=== PATIENT | male | born 1965 | race Caucasian/White ===

== ENCOUNTER → 2017-05-07 | Outpatient (CLI) | payer BC ==
--- NOTE | 2017-05-07 15:50 | XR ---
EXAMINATION TYPE: XR chest 2V DATE OF EXAM: 05/07/2017 COMPARISON: None HISTORY: 51 year-old male shortness of breath TECHNIQUE: Frontal and lateral views FINDINGS: The cardiomediastinal silhouette, aorta, and pulmonary vasculature are within normal limits. Diffuse peribronchial cuffing and mild interstitial prominence. No consolidation or pleural effusion. IMPRESSION: Diffuse peribronchial cuffing and interstitial prominence. Correlate for bronchitis, uncontrolled ast hma, or atypical pneumonias.
== END | disposition home or self-care (01) ==
LOC: RADXRMAIN 15:24
PROVIDERS: ATTEND Family Medicine
DX: R91.8 Other nonspecific abnormal finding of lung field (principal); R06.02 Shortness of breath
CPT/HCPCS: 71020

== ENCOUNTER → 2017-09-19 | Outpatient (CLI) | payer BC, OTHER ==
--- NOTE | 2017-09-19 17:02 | CT ---
EXAMINATION TYPE: CT chest wo con DATE OF EXAM: 09/19/2017 COMPARISON: NONE HISTORY: Patient complains of shortness of breath x18 months. CT DLP: 302.3 mGycm. Automated Exposure Control for Dose Reduction was Utilized. TECHNIQUE: CT scan of the thorax is performed without IV contrast. FINDINGS: LUNGS: The lungs are grossly clear, there is no concerning parenchymal mass or nodule identified. T here is no pleural effusion or pneumothorax seen. The tracheobronchial tree is patent. Pleural thick ening noted on the left the upper lobe subsegmental perihilar ill-defined attenuation in the left inf rahilar region lingular segment left upper lobe. 2 mm subpleural nodule right upper lobe MEDIASTINUM: Lack of IV contrast is noted to limit evaluation for mediastinal and especially hilar ad enopathy. There are no definitive greater than 1 cm hilar or mediastinal lymph nodes. No cardiomega ly or pericardial effusion is seen. Mild atherosclerotic change of the aorta. Note is made assessment for adenopathy limited by the lack of contrast. OTHER: Hypertrophic and degenerative change spine. IMPRESSION: 1. Subsegmental ill-defined attenuation left infrahilar region linear segment left upper lobe likely related atelectasis rather than early pneumonitis. 2. There is a 2 mm subpleural nodule right upper lobe could be followed on a one-year basis to confir m stability.
== END | disposition home or self-care (01) ==
LOC: RADCTMAIN 16:11
PROVIDERS: ATTEND Internal Medicine
DX: R91.1 Solitary pulmonary nodule (principal); R91.8 Other nonspecific abnormal finding of lung field; R05 Cough; R06.02 Shortness of breath
CPT/HCPCS: 71250

== ENCOUNTER 2017-11-07 08:20 | Day surgery (SDC) | payer BC, OTHER ==
[~2017-11-07 08:20] MED LIST: LACTATED RINGERS 1,000 ML IV SCH
[2017-11-07] MEDS ORDERED: LIDOCAINE 1% 20 ML VIAL (10MG/ML) FOR IV START INTRADERMA ONE (08:48)
[2017-11-07] MEDS ORDERED: PROPOFOL 10 MG/ML 20 ML VIAL IV ONE (10:09)
[2017-11-07] MEDS ORDERED: LIDOCAINE 1% INJ 10MG/ML (20 ML MDV) ONE (10:09)
--- NOTE | 2017-11-07 10:17 | P.GSHP ---
History of Present Illness H&P Date: 11/07/17 CHIEF COMPLAINT: Colon screen HISTORY OF PRESENT ILLNESS: The patient is a 52-year-old male who presents for colon screen. Lower endoscopy was offered for further evaluation and management. PAST MEDICAL HISTORY: Please see list. PAST SURGICAL HISTORY: Please see list. MEDICATIONS: Please see list. ALLERGIES: Please see list. SOCIAL HISTORY: No illicit drug use FAMILY HISTORY: No reports of Crohn disease or ulcerative colitis. REVIEW OF ORGAN SYSTEMS: CONSTITUTIONAL: No reports of fevers or chills. PHYSICAL EXAM: VITAL SIGNS: Stable GENERAL: Well-developed pleasant in no acute distress. HEENT: No scleral icterus. Extraocular movements grossly intact. Moist buccal mucosa. NECK: Supple without lymphadenopathy. CHEST: Unlabored respirations. Equal bilateral excursions. CARDIOVASCULAR: Regular rate and rhythm. Distal 2+ pulses. ABDOMEN: Soft, nontender, nondistended. MUSCULOSKELETAL: No clubbing, cyanosis, or edema. ASSESSMENT: 1. Colon screen. PLAN: 1. Recommend proceeding with a lower endoscopy Past Medical History Past Medical History: Hypertension, Prostate Disorder Additional Past Medical History / Comment(s): migraines, hx heart murmer, hx gout, hx bacterial meningitis 1995 History of Any Multi-Drug Resistant Organisms: None Reported Past Surgical History: No Surgical Hx Reported Past Anesthesia/Blood Transfusion Reactions: No Reported Reaction Smoking Status: Current every day smoker - Past Family History Father Family Medical History: Deep Vein Thrombosis (DVT) Medications and Allergies Home Medications Medication Instructions Recorded Confirmed Type Aspirin [Children's Aspirin] 81 mg PO DAILY 11/06/17 11/06/17 History Finasteride [Proscar] 5 mg PO HS 11/06/17 11/06/17 History Irbesartan 300 mg PO QAM 11/06/17 11/06/17 History Tamsulosin [Flomax] 0.4 mg PO HS 11/06/17 11/06/17 History amLODIPine [Norvasc] 5 mg PO HS 11/06/17 11/06/17 History buPROPion HCL [Wellbutrin XL] 150 mg PO BID 11/06/17 11/06/17 History rOPINIRole HCL 0.5 mg PO HS 11/06/17 11/06/17 History Allergies Allergy/AdvReac Type Severity Reaction Status Date / Time erythromycin base Allergy Rash/Hives Verified 01/03/18 08:39 Surgical - Exam Vital Signs Temp Pulse Resp BP Pulse Ox 97.5 F L 86 16 148/87 98 11/07/17 08:38 11/07/17 08:38 11/07/17 08:38 11/07/17 08:38 11/07/17 08:38
--- NOTE | 2017-11-07 11:14 | P.PCN ---
Date of Procedure: 11/07/17 Description of Procedure: PREOPERATIVE DIAGNOSIS: Colonoscopy screening, initial. Rectal bleeding. POSTOPERATIVE DIAGNOSIS: Colonoscopy screening, initial. Rectal bleeding. Large colonic tumor sigmoid colon. Multiple diverticulosis. OPERATION: Colonoscopy to the ileocecal valve and appendiceal orifice. Colonoscopy with snare polypectomy colonic tumor at sigmoid colon. SURGEON: Jeane Cage MD. ANESTHESIA: MAC. INDICATIONS: The patient is a 52-year-old male who presents for his first colonoscopy screening. Benefits and risks were described and informed consent was obtained. DESCRIPTION OF PROCEDURE: The patient had undergone Gatorade, MiraLAX and Dulcolax prep. He had been brought into the operating room and laid in the left lateral decubitus position. After adequate intravenous sedation, the rectum was examined with 2% lidocaine jelly. The prostate was smooth and without nodularity. No external hemorrhoids were encountered. The rectal tone was within normal limits. No lesions were palpated in the rectal vault. An Olympus colonoscope was advanced until the ileocecal valve and appendiceal orifice were clearly viewed. The prep was fair with visualization of the mucosal folds. The scope was removed with visualization of each mucosal fold. Moderate scattered diverticulosis was encountered. Large 4 x 3 cm pedunculated adenoma with snare polypectomy to completion snare polypectomy at 30 cm from the anal verge. No evidence of focal colitis was found. Retroflexion of the scope demonstrated grade 2 internal hemorrhoids without active bleeding or inflammation. The colon was desufflated. The patient had tolerated the procedure well. Withdrawal time was over 6 minutes. FINDINGS: Internal hemorrhoids, grade 2 External hemorrhoids, grade 1. No arteriovenous malformations. Large 4 x 3 cm pedunculated adenoma with snare polypectomy to completion snare polypectomy at 30 cm from the anal verge. Moderate scattered diverticulosis. No focal colitis. RECOMMENDATIONS: Given severity of tubular adenomas, recommend repeat colonoscopy 1 year. Plan - Discharge Summary New Discharge Prescriptions: No Action buPROPion HCL [Wellbutrin XL] 150 mg PO BID Irbesartan 300 mg PO QAM rOPINIRole HCL 0.5 mg PO HS amLODIPine [Norvasc] 5 mg PO HS Finasteride [Proscar] 5 mg PO HS Tamsulosin [Flomax] 0.4 mg PO HS Aspirin [Children's Aspirin] 81 mg PO DAILY Discharge Medication List Aspirin [Children's Aspirin] 81 mg PO DAILY 11/06/17 [History] Finasteride [Proscar] 5 mg PO HS 11/06/17 [History] Irbesartan 300 mg PO QAM 11/06/17 [History] Tamsulosin [Flomax] 0.4 mg PO HS 11/06/17 [History] amLODIPine [Norvasc] 5 mg PO HS 11/06/17 [History] buPROPion HCL [Wellbutrin XL] 150 mg PO BID 11/06/17 [History] rOPINIRole HCL 0.5 mg PO HS 11/06/17 [History]
[2017-11-07 22:59] VITALS: BP 126/84; PULSE 87; RESP 16; TEMP 97.5; BMI 33.0
--- NOTE | 2017-11-14 14:31 | CDI ---
Outpatient Documentation Clarification Form Date: 11/14/11 CDS/Chip Person Name: KATIE Medeiros Phone: If you have question, contact Susie Alcala Telegraph Service Clerk at [phone] M-F 8:30 am to 6pm. Patient Name: Munir Ruano Admit Date: 11/07/17 Discharge Date: 11/07/17 ATTENTION: The Clinical Documentation Specialists (CDI) and [facility] Coding Staff appreciate your assistance in clarifying documentation. Please respond to the clarification below the line at the bottom and electronically sign. The CDI & [facility] Coding staff will review the response and follow-up if needed. Please note: Queries are made part of the Legal Health Record. If you have any questions, please contact the author of this message via ITS or call the Telegraph Service Clerk. Dr. Cage, I have two questions, as follows: 1. Were external hemorrhoids found? The procedure description states that no external hemorrhoids were found. The procedure findings state external hemorrhoids. 2. Was the patients rectal bleeding secondary to hemorrhoids, or incidental? PLEASE SEE CORRECTED REPORT....RECTAL BLEEDING IS HIS INITIAL COMPLAINT INCLUDING HIS FIRST COLON SCREEN, HEMORRHOIDS WERE FOUND. CAUSE OF BLEEDING WAS A FRIABLE LARGE COLON TUMOR, PLEASE SEE PATHOLOGY REPORT MTDD
== END 2017-11-07 11:39 | disposition home or self-care (01) ==
LOC: ORWHC2ENDO 08:20
PROVIDERS: ATTEND Surgery Plastic and Reconstructive Surgery
DX: D12.5 Benign neoplasm of sigmoid colon (principal); K57.30 Diverticulosis of large intestine without perforation or abscess without bleeding; K64.1 Second degree hemorrhoids; K64.4 Residual hemorrhoidal skin tags; I10 Essential (primary) hypertension; N42.9 Disorder of prostate, unspecified; G43.909 Migraine, unspecified, not intractable, without status migrainosus; R01.1 Cardiac murmur, unspecified; M10.9 Gout, unspecified; F17.200 Nicotine dependence, unspecified, uncomplicated; Z79.82 Long term (current) use of aspirin; Z79.899 Other long term (current) drug therapy; Z88.1 Allergy status to other antibiotic agents
CPT/HCPCS: 88305; 45385; J2001; J2704

== ENCOUNTER 2021-02-24 20:48 | Emergency (ER) | payer BC, OTHER ==
[2021-02-24 20:54] VITALS: TEMP 97.7
[2021-02-24] MEDS ORDERED: SODIUM CHLORIDE 0.9% 1,000 ML IV STA (21:30)
[2021-02-24 21:52] LABS: Basophils # (A) 0.1 k/uL (0-0.2); Basophils % (A) 1 %; Eosinophils # (A) 0.3 k/uL (0-0.7); Eosinophils % (A) 4 %; HCT 49.6 % (39.0-53.0); HGB 16.5 gm/dL (13.0-17.5); Lymphocytes # (A) 3.1 k/uL (1.0-4.8); Lymphocytes % (A) 32 %; MCH 29.3 pg (25.0-35.0); MCHC 33.3 g/dL (31.0-37.0); MCV 87.8 fL (80.0-100.0); Mean Platelet Volume 7.3; Monocytes # (A) 0.7 k/uL (0-1.0); Monocytes % (A) 7 %; Neutrophils # (A) 5.4 k/uL (1.3-7.7); Neutrophils % (A) 55 %; Platelet Count 282 k/uL (150-450); RBC 5.66 m/uL (4.30-5.90); RDW 13.7 % (11.5-15.5); WBC 9.7 k/uL (3.8-10.6)
[2021-02-24 22:04] LABS: Partial Thromboplastin Time 23.8 sec (22.0-30.0); Prothrombin Time 10.5 sec (9.0-12.0)
[2021-02-24 22:05] LABS: ALT 77 U/L (4-49); AST 51 U/L (17-59); African American GFR (CKD) >90 (>60 ml/min/1.73 sqM); Albumin 4.6 g/dL (3.5-5.0); Alkaline Phosphatase 82 U/L (38-126); Anion Gap 9 mmol/L; Blood Urea Nitrogen 16 mg/dL (9-20); C Reactive Protein 1.4 mg/dL (<1.0); Calcium 9.9 mg/dL (8.4-10.2); Carbon Dioxide 30 mmol/L (22-30); Chloride 97 mmol/L (98-107); Creatine Kinase 247 U/L (55-170); Glucose 101 mg/dL (74-99); LDH 628 U/L (313-618); Lipase 45 U/L (23-300); Magnesium 2.2 mg/dL (1.6-2.3); Non-African American GFR(CKD) 81 (>60 ml/min/1.73 sqM); Potassium 4.1 mmol/L (3.5-5.1); Sodium 136 mmol/L (137-145); Total Protein 7.4 g/dL (6.3-8.2)
--- NOTE | 2021-02-24 22:19 | ED ---
Chest Pain HPI - General Chief Complaint: Chest Pain Stated Complaint: Chest & Shoulder Pain , SOB Time Seen by Provider: 02/24/21 21:18 Source: patient, RN notes reviewed, old records reviewed Mode of arrival: ambulatory Limitations: no limitations - History of Present Illness MD Complaint: chest pain -: days(s) Onset: during rest, during exertion Pain Location: substernal, left chest Pain Radiation: none, jaw/teeth Severity scale (1-10): 4 Quality: tightness Consistency: constant Improves With: nothing Context: other (none) Other Symptoms: cough, palpitations Treatments Prior to Arrival: none - Related Data Home Medications Medication Instructions Recorded Confirmed Aspirin [Children's Aspirin] 81 mg PO DAILY 11/06/17 11/06/17 Finasteride [Proscar] 5 mg PO HS 11/06/17 11/06/17 Irbesartan 300 mg PO QAM 11/06/17 11/06/17 Tamsulosin [Flomax] 0.4 mg PO HS 11/06/17 11/06/17 amLODIPine [Norvasc] 5 mg PO HS 11/06/17 11/06/17 buPROPion HCL [Wellbutrin XL] 150 mg PO BID 11/06/17 11/06/17 rOPINIRole HCL [Requip] 0.5 mg PO HS 11/06/17 11/06/17 Allergies Allergy/AdvReac Type Severity Reaction Status Date / Time erythromycin base Allergy Rash/Hives Verified 02/24/21 20:55 Review of Systems ROS Statement: Those systems with pertinent positive or pertinent negative responses have been documented in the HPI. ROS Other: All systems not noted in ROS Statement are negative. EKG Findings - EKG Comments: EKG Findings:: EKG shows sinus rhythm 98 VT 132 QRS 92 QTC 472 Past Medical History Past Medical History: Hypertension, Prostate Disorder Additional Past Medical History / Comment(s): migraines, hx heart murmer, hx gout, hx bacterial meningitis 1995 History of Any Multi-Drug Resistant Organisms: None Reported Past Surgical History: No Surgical Hx Reported Past Anesthesia/Blood Transfusion Reactions: No Reported Reaction Past Psychological History: No Psychological Hx Reported Smoking Status: Current every day smoker Past Alcohol Use History: None Reported Past Drug Use History: None Reported - Past Family History Father Family Medical History: Deep Vein Thrombosis (DVT) General Exam Limitations: no limitations General appearance: alert, in no apparent distress Head exam: Present: atraumatic, normocephalic, normal inspection Eye exam: Present: normal appearance, PERRL, EOMI. Absent: scleral icterus, conjunctival injection, periorbital swelling ENT exam: Present: normal exam, mucous membranes moist Neck exam: Present: normal inspection. Absent: tenderness, meningismus, lymphadenopathy Respiratory exam: Present: normal lung sounds bilaterally. Absent: respiratory distress, wheezes, rales, rhonchi, stridor Cardiovascular Exam: Present: regular rate, normal rhythm, normal heart sounds. Absent: systolic murmur, diastolic murmur, rubs, gallop, clicks GI/Abdominal exam: Present: soft, normal bowel sounds. Absent: distended, tenderness, guarding, rebound, rigid Extremities exam: Present: normal inspection, full ROM, normal capillary refill. Absent: tenderness, pedal edema, joint swelling, calf tenderness Back exam: Present: normal inspection Neurological exam: Present: alert, oriented X3, CN II-XII intact Psychiatric exam: Present: normal affect, normal mood Skin exam: Present: warm, dry, intact, normal color. Absent: rash Course Vital Signs 02/24/21 02/24/21 20:51 23:10 Temperature 97.7 F Pulse Rate 99 104 H Respiratory 18 16 Rate Blood Pressure 131/67 149/80 O2 Sat by Pulse 99 98 Oximetry - Reevaluation(s) Reevaluation #1: Medical record is reviewed Patient symptoms are significantly improved here in the emergency department Patient family informed of results, questions answered Disposition Clinical Impression: Chest pain, Atypical chest pain Disposition: HOME SELF-CARE Condition: Good Instructions (If sedation given, give patient instructions): Chest Pain (ED) Is patient prescribed a controlled substance at d/c from ED?: No Referrals: Gary Baum DO [Primary Care Provider] - 1-2 days
--- NOTE | 2021-02-24 22:31 | CT ---
EXAMINATION TYPE: CT angio chest DATE OF EXAM: 02/24/2021 COMPARISON: 09/19/2017 HISTORY: pain CT DLP: 648.4 mGycm Automated exposure control for dose reduction was used. CONTRAST: Performed with IV Contrast, patient injected with 70 mL of Isovue 370. There are 3-D post processed images. The lungs are clear of consolidation. There is no pleural effusion. Heart size is normal. There is no pericardial effusion. There are no hilar masses. There is no mediastinal adenopathy. Thoracic aorta appears intact. Ascending aorta measures 3.4 cm. T here is no aneurysm or dissection. There is suboptimal contrast density in the pulmonary arteries. I see no filling defect. The thoracic spine is intact. There is no compression fracture. Upper abdominal soft tissues are intact. IMPRESSION: No evidence of pulmonary embolism. Suboptimal exam. No evidence of any significant lung disease.
[2021-02-24 23:12] VITALS: BP 149/80; PULSE 104; RESP 16
== END 2021-02-24 23:12 | disposition home or self-care (01) ==
LOC: EC 20:48
DX: R07.89 Other chest pain (principal); R06.02 Shortness of breath; I10 Essential (primary) hypertension; G43.909 Migraine, unspecified, not intractable, without status migrainosus; F17.200 Nicotine dependence, unspecified, uncomplicated; Z79.82 Long term (current) use of aspirin; M25.519 Pain in unspecified shoulder
CPT/HCPCS: 36415; 93005; 83880; 80053; 82550; 83615; 83690; 83735; 84484; 85025; 85610; 85730; 86140; 71275; 99285; 96360; Q9967

== ENCOUNTER 2021-09-29 20:17 | Emergency (ER) | payer BC ==
[2021-09-29 20:29] VITALS: TEMP 98.7
--- NOTE | 2021-09-29 21:12 | ED ---
General Adult HPI - General Chief complaint: Skin/Abscess/Foreign Body Stated complaint: Rash on L armpit,sore chest near rash Time Seen by Provider: 09/29/21 20:46 Source: patient, RN notes reviewed Mode of arrival: ambulatory Limitations: no limitations - History of Present Illness Initial comments: 56-year-old male presents to the emergency department accompanied by his spouse for evaluation of reddened areas to the left axilla, left breast, and the pubic region. Patient states symptoms began approximately 10 days ago with a few isolated reddened bumps under the left arm, but now has significant increased redness and discomfort. States within the past few days he developed redness around the left breast with an area that is firm and tender. Also has skin breakdown around the shaft of his penis and left pubic region. Patient states he applied neosporin to the left axilla and had some improvement initially, but reports it then worsened. Patient denies fever, chills, headache, nausea, and vomiting. - Related Data Home Medications Medication Instructions Recorded Confirmed Aspirin [Children's Aspirin] 81 mg PO DAILY 11/06/17 11/06/17 Finasteride [Proscar] 5 mg PO HS 11/06/17 11/06/17 Irbesartan 300 mg PO QAM 11/06/17 11/06/17 Tamsulosin [Flomax] 0.4 mg PO HS 11/06/17 11/06/17 amLODIPine [Norvasc] 5 mg PO HS 11/06/17 11/06/17 buPROPion HCL [Wellbutrin XL] 150 mg PO BID 11/06/17 11/06/17 rOPINIRole HCL [Requip] 0.5 mg PO HS 11/06/17 11/06/17 Previous Rx's Medication Instructions Recorded Cephalexin [Keflex] 500 mg PO Q6HR #40 cap 09/29/21 Nystatin 100,000Unit/gm Cream 1 applic TOPICAL BID 10 Days #15 09/29/21 [Mycostatin Cream] gram Sulfamethox-Tmp 800-160Mg [Bactrim 1 each PO Q12HR #20 tab 09/29/21 Ds] Allergies Allergy/AdvReac Type Severity Reaction Status Date / Time erythromycin base Allergy Rash/Hives Verified 02/24/21 20:55 Review of Systems ROS Statement: Those systems with pertinent positive or pertinent negative responses have been documented in the HPI. ROS Other: All systems not noted in ROS Statement are negative. Past Medical History Past Medical History: Hypertension, Prostate Disorder Additional Past Medical History / Comment(s): migraines, hx heart murmer, hx gout, hx bacterial meningitis 1995 History of Any Multi-Drug Resistant Organisms: None Reported Past Surgical History: No Surgical Hx Reported Past Anesthesia/Blood Transfusion Reactions: No Reported Reaction Past Psychological History: No Psychological Hx Reported Smoking Status: Current every day smoker Past Alcohol Use History: None Reported Past Drug Use History: None Reported - Past Family History Father Family Medical History: Deep Vein Thrombosis (DVT) General Exam Limitations: no limitations (Well-developed, well-nourished male in no acute distress. Initial temperature 98.7, pulse 109, respirations 22, blood pressure 194/87, pulse ox 98% on room air.) General appearance: alert, in no apparent distress ENT exam: Present: normal exam, normal oropharynx, mucous membranes moist Neck exam: Present: other (Localized area of swelling on the left side of the neck along the anterior cervical lymph node chain; patient states this has been present for the past 18 months and has been evaluated by his PCP.). Absent: tenderness Respiratory exam: Present: normal lung sounds bilaterally. Absent: respiratory distress, wheezes, rales, rhonchi, stridor Cardiovascular Exam: Present: regular rate, normal rhythm, normal heart sounds. Absent: systolic murmur, diastolic murmur, rubs, gallop, clicks GI/Abdominal exam: Present: soft, normal bowel sounds. Absent: distended, tenderness, guarding, rebound, rigid External exam: Present: other (thickened, erythematous skin in pubic area and shaft of penis) Neurological exam: Present: alert, oriented X3, CN II-XII intact Psychiatric exam: Present: normal affect, normal mood Expanded Type of lesion: Present: rash, abscess (area of firmness localized to the left breast, subareolar; surrounding tissue erythematous; no discharge or drainage. Differs in appearance from axillary and pubic rashes.) Distribution of rash: other (left axilla) Description of rash: Present: tenderness, erythematous (thickened skin, areas of breakdown), confluent, discharge (brownish colored discharge) Course Vital Signs 11/25/21 11/25/21 20:27 22:57 Temperature 98.7 F Pulse Rate 109 H 93 Respiratory 22 16 Rate Blood Pressure 194/87 163/93 O2 Sat by Pulse 98 96 Oximetry Medical Decision Making - Medical Decision Making 56-year-old male with past medical history of hypertension, presents to the emergency department for evaluation. Upon exam, patient has left axillary diffuse, erythematous, thickened skin with brownish discharge that is a yeast- like fungal infection in appearance. Patient also has what appears to be secondary infection around the left breast. Mildly erythematous area noted across the entire left breast with an indurated area noted sub-areolar that is tender to touch; this appears to be a secondary infection. Patient also has a yeast-like fungal on the shaft of his penis. Laboratory studies were reviewed; mild leukocytosis noted. Yeast-looking fungal infections will be treated with topical nystatin. Cellulitis with possible abscess will be treated with oral Keflex and Bactrim. Patient is instructed to follow-up with his primary care provider in the next 24-48 hours for a recheck. Return parameters were discussed in detail. Patient verbalizes understanding and agrees with this plan. This patient's care was discussed with my attending Dr. Flores. - Lab Data Result diagrams: 09/29/21 21:35 09/29/21 21:35 Lab Results 09/29/21 09/29/21 Range/Units 21:35 21:35 WBC 11.6 H (3.8-10.6) k/uL RBC 4.91 (4.30-5.90) m/uL Hgb 14.4 (13.0-17.5) gm/dL Hct 42.9 (39.0-53.0) % MCV 87.4 (80.0-100.0) fL MCH 29.3 (25.0-35.0) pg MCHC 33.6 (31.0-37.0) g/dL RDW 13.0 (11.5-15.5) % Plt Count 257 (150-450) k/uL MPV 7.0 Neutrophils % 69 % Lymphocytes % 22 % Monocytes % 4 % Eosinophils % 3 % Basophils % 0 % Neutrophils # 8.0 H (1.3-7.7) k/uL Lymphocytes # 2.5 (1.0-4.8) k/uL Monocytes # 0.5 (0-1.0) k/uL Eosinophils # 0.4 (0-0.7) k/uL Basophils # 0.1 (0-0.2) k/uL Sodium 138 (137-145) mmol/L Potassium 4.1 (3.5-5.1) mmol/L Chloride 102 (98-107) mmol/L Carbon Dioxide 28 (22-30) mmol/L Anion Gap 8 mmol/L BUN 14 (9-20) mg/dL Creatinine 1.01 (0.66-1.25) mg/dL Est GFR (CKD-EPI)AfAm >90 (>60 ml/min/1.73 sqM) Est GFR (CKD-EPI)NonAf 82 (>60 ml/min/1.73 sqM) Glucose 129 H (74-99) mg/dL Calcium 9.0 (8.4-10.2) mg/dL Disposition Clinical Impression: Jo infection of flexural skin, Cellulitis of breast of male, Abscess of breast, left Disposition: HOME SELF-CARE Condition: Stable Instructions (If sedation given, give patient instructions): Cellulitis (ED), Abscess (ED), Skin Yeast Infection (ED) Additional Instructions: Take oral antibiotics to treat left breast skin infection and abscess. Monitor for signs of worsening infection including fever, chills, and worsening pain and redness. Apply topical antifungal medication to left axilla (armpit) and affected pubic area. Follow-up with primary care provider for recheck in the next 1-2 days. Return to the emergency department with any new, worsening, or concerning symptoms. Prescriptions: Sulfamethox-Tmp 800-160Mg [Bactrim Ds] 1 each PO Q12HR #20 tab Cephalexin [Keflex] 500 mg PO Q6HR #40 cap Nystatin 100,000Unit/gm Cream [Mycostatin Cream] 1 applic TOPICAL BID 10 Days #15 gram Is patient prescribed a controlled substance at d/c from ED?: No Referrals: Gary Baum DO [Primary Care Provider] - 1-2 days Time of Disposition: 22:53
[2021-09-29 21:41] LABS: Basophils # (A) 0.1 k/uL (0-0.2); Basophils % (A) 0 %; Eosinophils # (A) 0.4 k/uL (0-0.7); Eosinophils % (A) 3 %; HCT 42.9 % (39.0-53.0); HGB 14.4 gm/dL (13.0-17.5); Lymphocytes # (A) 2.5 k/uL (1.0-4.8); Lymphocytes % (A) 22 %; MCH 29.3 pg (25.0-35.0); MCHC 33.6 g/dL (31.0-37.0); MCV 87.4 fL (80.0-100.0); Monocytes # (A) 0.5 k/uL (0-1.0); Monocytes % (A) 4 %; Neutrophils % (A) 69 %; Platelet Count 257 k/uL (150-450); RBC 4.91 m/uL (4.30-5.90); WBC 11.6 k/uL (3.8-10.6)
[2021-09-29 21:53] LABS: Chloride 102 mmol/L (98-107)
[2021-09-29 21:58] LABS: African American GFR (CKD) >90 (>60 ml/min/1.73 sqM); Anion Gap 8 mmol/L; Blood Urea Nitrogen 14 mg/dL (9-20); Carbon Dioxide 28 mmol/L (22-30); Glucose 129 mg/dL (74-99); Non-African American GFR(CKD) 82 (>60 ml/min/1.73 sqM); Potassium 4.1 mmol/L (3.5-5.1); Sodium 138 mmol/L (137-145)
[2021-09-29] MEDS ORDERED: CEPHALEXIN 500 MG CAP PO STA (22:35)
[2021-09-29] MEDS ORDERED: SULFAMETHOX-TMP 800-160MG 1 EACH TAB PO STA (22:35)
[2021-09-29 22:58] VITALS: BP 163/93; PULSE 93; RESP 16
[2021-09-29] MEDS ORDERED: NYSTATIN 100,000 UNIT/GM OINT 30 GM TUBE TOPICAL ONE (23:00)
== END 2021-09-29 23:08 | disposition home or self-care (01) ==
LOC: EC 20:17
DX: L03.313 Cellulitis of chest wall (principal); N61.1 Abscess of the breast and nipple; B37.2 Candidiasis of skin and nail; I10 Essential (primary) hypertension; G43.909 Migraine, unspecified, not intractable, without status migrainosus; F17.200 Nicotine dependence, unspecified, uncomplicated; Z88.1 Allergy status to other antibiotic agents; Z79.82 Long term (current) use of aspirin; Z79.899 Other long term (current) drug therapy
CPT/HCPCS: 36415; 80048; 85025; 99283

== ENCOUNTER 2021-10-02 10:27 | Emergency (ER) | payer BC ==
[2021-10-02 10:31] VITALS: BP 152/97; PULSE 98; RESP 18
[2021-10-02] MEDS ORDERED: KETOROLAC 30 MG/ML 1 ML VIAL IM STA (10:47)
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
== END 2021-10-02 11:35 | disposition home or self-care (01) ==
LOC: EC 10:27
DX: M10.071 Idiopathic gout, right ankle and foot (principal); I10 Essential (primary) hypertension; F17.200 Nicotine dependence, unspecified, uncomplicated; Z88.1 Allergy status to other antibiotic agents; Z79.82 Long term (current) use of aspirin; Z79.899 Other long term (current) drug therapy
CPT/HCPCS: 99283; 96372; J1885

== ENCOUNTER 2021-11-13 00:12 | Emergency (ER) | payer OTHER, BC ==
[2021-11-13 01:02] VITALS: BP 134/84; PULSE 105; RESP 20; TEMP 99
[2021-11-13] MEDS ORDERED: KETOROLAC 15 MG/ML 1 ML VIAL IM STA (01:22)
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
== END 2021-11-13 02:53 | disposition home or self-care (01) ==
LOC: EC 00:12
DX: M54.59 Other low back pain (principal); I10 Essential (primary) hypertension; G43.909 Migraine, unspecified, not intractable, without status migrainosus; F17.200 Nicotine dependence, unspecified, uncomplicated; Z79.82 Long term (current) use of aspirin; Z88.1 Allergy status to other antibiotic agents; V49.9XXA Car occupant (driver) (passenger) injured in unspecified traffic accident, initial encounter; Y92.410 Unspecified street and highway as the place of occurrence of the external cause
CPT/HCPCS: 99283; 96372; 72100; J1885

== ENCOUNTER 2022-01-31 12:08 | Emergency (ER) | payer OTHER, BC ==
[2022-01-31 12:23] VITALS: BP 148/79; PULSE 77; RESP 18; TEMP 98.9
[2022-01-31] MEDS ORDERED: CEPHALEXIN 500MG STARTER PACK 4 CAP BTL PO STA (12:37)
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
== END 2022-01-31 12:54 | disposition home or self-care (01) ==
LOC: EC 12:08
DX: N49.2 Inflammatory disorders of scrotum (principal); I10 Essential (primary) hypertension; G43.909 Migraine, unspecified, not intractable, without status migrainosus; F17.200 Nicotine dependence, unspecified, uncomplicated
CPT/HCPCS: 87070; 87205; 99283

== ENCOUNTER 2023-03-20 17:37 | Emergency (ER) | payer OTHER, BC ==
[2023-03-20 17:42] VITALS: RESP 16; TEMP 98
[2023-03-20 18:07] LABS: Basophils % (A) 1 %; Eosinophils # (A) 0.4 k/uL (0-0.7); Eosinophils % (A) 5 %; HCT 46.8 % (39.0-53.0); HGB 16.1 gm/dL (13.0-17.5); Lymphocytes # (A) 2.8 k/uL (1.0-4.8); Lymphocytes % (A) 34 %; MCH 30.1 pg (25.0-35.0); MCHC 34.3 g/dL (31.0-37.0); MCV 87.5 fL (80.0-100.0); Mean Platelet Volume 7.4; Monocytes # (A) 0.4 k/uL (0-1.0); Monocytes % (A) 4 %; Neutrophils # (A) 4.6 k/uL (1.3-7.7); Neutrophils % (A) 56 %; Platelet Count 266 k/uL (150-450); RBC 5.34 m/uL (4.30-5.90); RDW 13.1 % (11.5-15.5); WBC 8.4 k/uL (3.8-10.6)
[2023-03-20 18:16] LABS: INR 0.9 (<1.2); Partial Thromboplastin Time 22.5 sec (22.0-30.0); Prothrombin Time 9.9 sec (9.0-12.0)
[2023-03-20 18:49] LABS: ALT 52 U/L (4-49); AST 35 U/L (17-59); African American GFR (CKD) >90 (>60 ml/min/1.73 sqM); Albumin 4.2 g/dL (3.5-5.0); Alkaline Phosphatase 81 U/L (38-126); Anion Gap 11 mmol/L; Blood Urea Nitrogen 11 mg/dL (9-20); Calcium 8.9 mg/dL (8.4-10.2); Carbon Dioxide 25 mmol/L (22-30); Chloride 102 mmol/L (98-107); Glucose 109 mg/dL (74-99); Non-African American GFR(CKD) 88 (>60 ml/min/1.73 sqM); Potassium 4.4 mmol/L (3.5-5.1); Sodium 138 mmol/L (137-145); Total Bilirubin 0.3 mg/dL (0.2-1.3); Total Protein 7.1 g/dL (6.3-8.2)
--- NOTE | 2023-03-20 19:42 | XR ---
EXAMINATION TYPE: XR chest 2V DATE OF EXAM: 03/20/2023 COMPARISON: CTA chest February 24, 2021 HISTORY: Chest pain. TECHNIQUE: Frontal and lateral views of the chest are obtained. FINDINGS: There is no focal air space opacity, pleural effusion, or pneumothorax seen. The cardiac silhouette size is within normal limits. The osseous structures are intact. IMPRESSION: No acute process. No significant change from prior CT.
--- NOTE | 2023-03-20 19:57 | ED ---
Chest Pain HPI - General Chief Complaint: Chest Pain Stated Complaint: CHEST PAIN Time Seen by Provider: 03/20/23 19:45 Source: patient Mode of arrival: ambulatory Limitations: no limitations - History of Present Illness Initial Comments: This patient is a 57-year-old man who presents evaluation of pain in the chest that is been going on since about 1 in the afternoon. The patient states she was getting ready to go to work. He noticed the pain there. He states it is mainly present when he coughs or if he presses on his chest. It does seem to go into his back. He states he has been dealing with "a cold" for the past week, including cough and congestion. The patient has not noted any anginal symptoms. MD Complaint: chest pain Onset/Timin -: hour(s) Onset: during rest Pain Location: left chest Pain Radiation: back Severity: moderate Quality: aching Consistency: intermittent Improves With: nothing Worsens With: palpation, other (Cough) Other Symptoms: cough Treatments Prior to Arrival: none - Related Data Home Medications Medication Instructions Recorded Confirmed Aspirin [Children's Aspirin] 81 mg PO DAILY 11/06/17 11/06/17 Finasteride [Proscar] 5 mg PO HS 11/06/17 11/06/17 Irbesartan 300 mg PO QAM 11/06/17 11/06/17 Tamsulosin [Flomax] 0.4 mg PO HS 11/06/17 11/06/17 amLODIPine [Norvasc] 5 mg PO HS 11/06/17 11/06/17 buPROPion HCL [Wellbutrin XL] 150 mg PO BID 11/06/17 11/06/17 rOPINIRole HCL [Requip] 0.5 mg PO HS 11/06/17 11/06/17 Previous Rx's Medication Instructions Recorded Cephalexin [Keflex] 500 mg PO Q6HR #40 cap 09/29/21 Nystatin 100,000Unit/gm Cream 1 applic TOPICAL BID 10 Days #15 09/29/21 [Mycostatin Cream] gram Sulfamethox-Tmp 800-160Mg [Bactrim 1 each PO Q12HR #20 tab 09/29/21 Ds] Indomethacin [Indocin] 50 mg PO TID PRN #30 capsule 10/02/21 Cyclobenzaprine HCl 10 mg PO TID 7 Days #21 tab 11/13/21 predniSONE 50 mg PO DAILY #5 tab 11/13/21 Cephalexin [Keflex] 500 mg PO QID #40 cap 01/31/22 Sulfamethox-Tmp 800-160Mg [Bactrim 1 each PO Q12HR 7 Days #14 tab 12/24/22 Ds] predniSONE [Deltasone] 20 mg PO BID #8 tab 03/20/23 Allergies Allergy/AdvReac Type Severity Reaction Status Date / Time erythromycin base Allergy Rash/Hives Verified 03/20/23 17:39 Review of Systems ROS Statement: Those systems with pertinent positive or pertinent negative responses have been documented in the HPI. ROS Other: All systems not noted in ROS Statement are negative. Constitutional: Denies: fever, chills, weakness Respiratory: Reports: cough. Denies: dyspnea, wheezes, hemoptysis Cardiovascular: Reports: chest pain. Denies: palpitations, orthopnea, edema, syncope Gastrointestinal: Denies: abdominal pain, nausea, vomiting Genitourinary: Denies: dysuria, hematuria Musculoskeletal: Denies: back pain Skin: Denies: rash Neurological: Denies: headache, weakness EKG Findings - EKG Results: EKG: interpreted by ERMD, sinus rhythm, normal axis - Blocks, [place], Hypertrophy, ST Abn: QRS axis and voltage: low voltage (<0.5 MV total QRS and <1.0 MV in each precordial lead) Repolarization changes or abnormalities: nonspecific abnormality, ST segment, and/or T wave Past Medical History Past Medical History: Hypertension, Prostate Disorder Additional Past Medical History / Comment(s): migraines, hx heart murmer, hx gout, hx bacterial meningitis 1995 History of Any Multi-Drug Resistant Organisms: MRSA Date of last positivie culture/infection: 01/31/22 MDRO Source:: MRSA GROIN Past Surgical History: No Surgical Hx Reported Past Anesthesia/Blood Transfusion Reactions: No Reported Reaction Past Psychological History: No Psychological Hx Reported Smoking Status: Current every day smoker Past Alcohol Use History: None Reported Past Drug Use History: None Reported - Past Family History Father Family Medical History: Deep Vein Thrombosis (DVT) General Exam Limitations: no limitations General appearance: alert, in no apparent distress Head exam: Present: atraumatic, normocephalic Eye exam: Present: normal appearance Neck exam: Present: normal inspection Respiratory exam: Present: normal lung sounds bilaterally, chest wall tenderness. Absent: respiratory distress, wheezes, rales, rhonchi, stridor, accessory muscle use Cardiovascular Exam: Present: regular rate, normal rhythm, normal heart sounds. Absent: systolic murmur, diastolic murmur, rubs, gallop GI/Abdominal exam: Present: soft. Absent: distended, tenderness, guarding, rebound, rigid, mass Extremities exam: Present: normal inspection, normal capillary refill. Absent: pedal edema, calf tenderness Back exam: Present: normal inspection. Absent: CVA tenderness (R), CVA tenderness (L) Neurological exam: Present: alert Skin exam: Present: warm, dry, intact, normal color. Absent: rash Course Vital Signs 03/20/23 03/20/23 03/20/23 17:39 19:57 21:21 Temperature 98 F Pulse Rate 111 H 87 82 Respiratory 16 16 16 Rate Blood Pressure 162/85 149/95 112/78 O2 Sat by Pulse 99 95 97 Oximetry Chest Pain [facility] - MDM This patient is 57-year-old man who presents with chest pain in relation to cough. History and physical exam consistent with bronchitis and associated chest wall pain. The patient had negative workup here. I discussed having admission to see cardiology as well as having serial cardiac enzymes and telemetry monitoring, the patient is declining. I did discuss that he had risk factor of smoking, but the patient states that he feels well and wants to go home. He will return should the symptoms recur. Otherwise she is going to arrange stress test as outpatient. We discussed appropriate return parameters as well as the further care and follow-up. Patient had chest x-ray which I interpreted as not showing acute infiltrate, congestive heart failure or pneumothorax. Was pt. sent in by a medical professional or institution (, PA, [employer], urgent care, hospital, or long term...) When possible be specific @ -[No] Did you speak to anyone other than the patient for history (EMS, parent, family, police, friend...)? What history was obtained from this source @ -[No] Did you review nursing and triage notes (agree or disagree)? Why? @ -[I reviewed and agree with nursing and triage notes] Were old charts reviewed (outside hosp., previous admission, EMS record, old EKG, old radiological studies, urgent care reports/EKG's, long term records)? Report findings @ -[No old charts were reviewed] Differential Diagnosis (chest pain, altered mental status, abdominal pain women, abdominal pain men, vaginal bleeding, weakness, fever, dyspnea, syncope, headache, dizziness, GI bleed, back pain, seizure, CVA, palpatations, mental health, musculoskeletal)? @ -[Differential Chest Pain: Stable Angina, Unstable Angina, STEMI, NSTEMI Aortic Dissection, Pneumothorax, Musculoskeletal, Esophageal Spasm GERD, Cholecystitis, Pancreatitis, Zoster, this is not meant to be an all-inclusive list. EKG interpreted by me (3pts min.). @ -[As above] X-rays interpreted by me (1pt min.). @ -[As above CT interpreted by me (1pt min.). @ -[None done] U/S interpreted by me (1pt. min.). @ -[None done] What testing was considered but not performed or refused? (CT, X-rays, U/S, labs)? Why? @ -[None] What meds were considered but not given or refused? Why? @ -[None] Did you discuss the management of the patient with other professionals (professionals i.e. , PA, [employer], lab, RT, psych nurse, social human services assistants, aluminum molder, teacher, armoured corps officer, egg caser)? Give summary @ -[No] Was smoking cessation discussed for >3mins.? @ -[Yes, and patient states that he has been able to cut down to approximately one third pack and will continue to work on quitting Was critical care preformed (if so, how long)? @ -[No] Were there social determinants of health that impacted care today? How? (Homelessness, low income, unemployed, alcoholism, drug addiction, transportation, low edu. Level, literacy, decrease access to med. care, halfway, rehab)? @ -[No] Was there de-escalation of care discussed even if they declined (Discuss DNR or withdrawal of care, Hospice)? DNR status @ -[No] What co-morbidities impacted this encounter? (DM, HTN, Smoking, COPD, CAD, Ca ncer, CVA, ARF, Chemo, Hep., AIDS, mental health diagnosis, sleep apnea, morbid obesity)? @ -[Smoking Was patient admitted / discharged? Hospital course, mention meds given and route, prescriptions, significant lab abnormalities, going to OR and other pertinent info. @ -[Discharged with close follow-up Undiagnosed new problem with uncertain prognosis? @ -[No] Drug Therapy requiring intensive monitoring for toxicity (Heparin, Nitro, Insulin, Cardizem)? @ -[No] Were any procedures done? @ -[No] Diagnosis/symptom? @ -[Acute chest wall pain Acute bronchitis Acute, or Chronic, or Acute on Chronic? @ -[default] Uncomplicated (without systemic symptoms) or Complicated (systemic symptoms)? @ -[Uncomplicated Side effects of treatment? @ -[No] Exacerbation, Progression, or Severe Exacerbation? @ -[No] Poses a threat to life or bodily function? How? (Chest pain, USA, MS, pneumonia, PE, COPD, DKA, ARF, appy, cholecystitis, CVA, Diverticulitis, Homicidal, Suicidal, threat to staff... and all critical care pts) @ -[No] Disposition Clinical Impression: Chest wall pain, Bronchitis Disposition: HOME SELF-CARE Condition: Good Instructions (If sedation given, give patient instructions): Acute Bronchitis (ED), Chest Wall Pain (ED) Additional Instructions: As we discussed, follow-up with your doctor. I would suggest scheduling a stress test in the near future, given your cardiac risk factors. Should any of the symptoms develop that we discussed, return to the emergency department immediately Prescriptions: predniSONE [Deltasone] 20 mg PO BID #8 tab Is patient prescribed a controlled substance at d/c from ED?: No Referrals: Gary Baum DO [Primary Care Provider] - 1-2 days
[2023-03-20] MEDS ORDERED: ALBUTEROL NEBULIZED 2.5 MG/3 ML INHALATION STA (20:32)
[2023-03-20] MEDS ORDERED: predniSONE 20 MG TAB PO STA (20:32)
[2023-03-20] MEDS ORDERED: IPRATROPIUM-ALBUTEROL 3 ML NEB INHALATION STA (20:32)
[2023-03-20 21:23] VITALS: BP 112/78; PULSE 82
== END 2023-03-20 22:11 | disposition home or self-care (01) ==
LOC: EC 17:37
DX: R07.89 Other chest pain (principal); J20.9 Acute bronchitis, unspecified; I10 Essential (primary) hypertension; F17.200 Nicotine dependence, unspecified, uncomplicated; Z88.1 Allergy status to other antibiotic agents; Z79.82 Long term (current) use of aspirin; Z79.899 Other long term (current) drug therapy; Z20.822 Contact with and (suspected) exposure to COVID-19
CPT/HCPCS: 36415; 71046; 80053; 84484; 85025; 85610; 85730; 87636; 93005; 99285

== ENCOUNTER 2023-07-05 21:23 | Observation (INO) | payer OTHER, BC ==
[2023-07-05] MEDS ORDERED: SODIUM CHLORIDE 0.9% 1,000 ML IV STA ×3 (21:59→23:25)
[2023-07-05 22:45] LABS: Prothrombin Time 10.4 sec (9.0-12.0)
[2023-07-05 22:52] LABS: ALT 32 U/L (4-49); AST 34 U/L (17-59); African American GFR (CKD) 30 (>60 ml/min/1.73 sqM); Albumin 4.3 g/dL (3.5-5.0); Alkaline Phosphatase 87 U/L (38-126); Anion Gap 15 mmol/L; Blood Urea Nitrogen 23 mg/dL (9-20); Calcium 9.2 mg/dL (8.4-10.2); Carbon Dioxide 23 mmol/L (22-30); Chloride 95 mmol/L (98-107); Glucose 118 mg/dL (74-99); Magnesium 1.8 mg/dL (1.6-2.3); Non-African American GFR(CKD) 26 (>60 ml/min/1.73 sqM); Sodium 133 mmol/L (137-145); Total Protein 7.1 g/dL (6.3-8.2)
[2023-07-05 22:54] LABS: Basophils % (A) 0 %; Eosinophils # (A) 0.1 k/uL (0-0.7); Eosinophils % (A) 1 %; HCT 43.1 % (39.0-53.0); HGB 14.9 gm/dL (13.0-17.5); Lymphocytes # (A) 1.6 k/uL (1.0-4.8); Lymphocytes % (A) 12 %; MCHC 34.5 g/dL (31.0-37.0); Mean Platelet Volume 7.6; Monocytes # (A) 0.7 k/uL (0-1.0); Monocytes % (A) 6 %; Neutrophils # (A) 10.9 k/uL (1.3-7.7); Neutrophils % (A) 81 %; Platelet Count 296 k/uL (150-450); RBC 4.96 m/uL (4.30-5.90); WBC 13.4 k/uL (3.8-10.6)
--- NOTE | 2023-07-05 23:06 | CT ---
EXAMINATION TYPE: CT brain wo con DATE OF EXAM: 07/05/2023 COMPARISON: 12/24/2022. HISTORY: Syncope. CT DLP: 1189.4 mGycm Automated exposure control for dose reduction was used. FINDINGS: There is no acute intracranial hemorrhage, mass, mass effect, midline shift, extra-axial fluid collec tion or hydrocephalus. The dennis-white distinction is intact without evidence of an acute major vessel infarct. Otherwise paranasal sinuses and mastoid air cells are clear. There is mild rightward septal deviation . IMPRESSION: NO ACUTE INTRACRANIAL PROCESS.
--- NOTE | 2023-07-05 23:24 | CT ---
EXAMINATION: CTA CHEST, ABDOMEN AND PELVIS WITHOUT AND WITH IV CONTRAST DATE OF EXAMINATION: 07/05/2023. COMPARISON: None available. INDICATION: Syncope with back pain. PROCEDURE: Axial CT of the abdomen and pelvis was performed without and with contrast and sagittal and coronal reformatted images were performed. CT dose lowering techniques were used, to include: aut omated exposure control, adjustment for patient size, and/or use of iterative reconstruction. Maximum intensity projection and 3-D reformats were also performed. 100 mL of Isovue-370 was given intraveno usly. FINDINGS: Chest: Mediastinum and hilar regions: There is no axillary, mediastinal or hilar lymphadenopathy. Pleural and pericardial spaces: There is no pleural or pericardial effusions. CARDIOVASCULAR: The thoracic aorta is normal in caliber without evidence of aneurysmal dilation or di ssection. Mild vascular calcification is seen. Minimal patchy coronary artery calcifications. ABDOMEN: Liver and Biliary system: Normal. Adrenal glands: Normal. Kidneys and ureters: Normal. Spleen: Normal. Pancreas: Normal. Gallbladder: Normal. Lymph nodes, Peritoneum and mesentery: There is no mesenteric or retroperitoneal lymphadenopathy. Gastrointestinal tract: There are no dilated loops of bowel or free intraperitoneal air. The appe ndix is normal. There is moderate sigmoid colonic and descending colonic diverticulosis without evide nce of diverticulitis. Aorta/IVC: There is moderate vascular calcification and plaque seen throughout the abdominal aorta without evidence of aneurysmal dilation or dissection. IVC normal. Abdominal wall: There is a small fat-containing umbilical hernia.. PELVIS: Fluid: There is no free fluid in the pelvis. Lymph Nodes: There is no pelvic or inguinal lymphadenopathy.. Urinary bladder: Normal. BONES: There are some scattered degenerative disc and facet changes seen throughout the spine. There are no acute osseous abnormalities.. ADDITIONAL SIGNIFICANT FINDINGS: None. IMPRESSION: 1. No evidence of thoracic or abdominal aortic aneurysm or dissection. 2. No evidence of pulmonary embolism. 3. No acute findings otherwise seen within the chest, abdomen or pelvis. 4. Diverticulosis without evidence of diverticulitis. 5. Atherosclerotic changes.
[2023-07-06] MEDS ORDERED: NALOXONE 0.4 MG/ML 1 ML VIAL IV PRN (00:13)
--- NOTE | 2023-07-06 00:13 | ED ---
General Adult HPI - General Chief complaint: Syncope Stated complaint: Syncope Time Seen by Provider: 07/05/23 21:50 Source: patient, RN notes reviewed, old records reviewed Mode of arrival: ambulatory Limitations: no limitations - History of Present Illness Initial comments: Patient is a 58-year-old male with past medical history remarkable for hyperte nsion and prostate disorder presents emergency Department complaining of a syncopal episode at work as well as diarrhea for the last 1-2 weeks. States he felt lightheaded and then passed out. Has been feeling more lightheaded over the last few days as well. Is not on blood thinners. Denies any hematochezia, melena, hematemesis. Endorses nausea but no emesis. Denies constipation but does endorse light brown diarrhea. Denies any urinary complaints. Has no other acute complaints at this time. Was complaining of mid back pain between the shoulder blades with possibly some chest pain radiation. This was more sudden onset earlier today prior to the syncopal episode. Was placed in room 3 for further evaluation. No cardiac history per patient. - Related Data Home Medications Medication Instructions Recorded Confirmed Finasteride [Proscar] 5 mg PO AC-SUPPER 11/06/17 07/05/23 Irbesartan 300 mg PO AC-SUPPER 11/06/17 07/05/23 Tamsulosin [Flomax] 0.4 mg PO AC-SUPPER 11/06/17 07/05/23 buPROPion HCL [Wellbutrin XL] 150 mg PO AC-SUPPER 11/06/17 07/05/23 Atorvastatin [Lipitor] 20 mg PO AC-SUPPER 07/05/23 07/05/23 amLODIPine [Norvasc] 10 mg PO AC-SUPPER 07/05/23 07/05/23 hydroCHLOROthiazide [Hydrodiuril] 12.5 mg PO AC-SUPPER 07/05/23 07/05/23 Allergies Allergy/AdvReac Type Severity Reaction Status Date / Time erythromycin base Allergy Rash/Hives Verified 07/05/23 23:26 Review of Systems ROS Statement: Those systems with pertinent positive or pertinent negative responses have been documented in the HPI. Review of Systems: CONST: Denies fever EYES: Denies blurry vision ENT: Denies nasal congestion C/V: Denies Chest pain RESP: Denies shortness of breath GI: Denies abdominal pain : Denies dysuria SKIN: Denies rash. MSK: Denies joint pain. NEURO: Denies headache ROS Other: All systems not noted in ROS Statement are negative. Past Medical History Past Medical History: Hypertension, Prostate Disorder Additional Past Medical History / Comment(s): migraines, hx heart murmer, hx gout, hx bacterial meningitis 1995 History of Any Multi-Drug Resistant Organisms: MRSA Date of last positivie culture/infection: 01/31/22 MDRO Source:: MRSA GROIN Past Surgical History: No Surgical Hx Reported Past Anesthesia/Blood Transfusion Reactions: No Reported Reaction Past Psychological History: No Psychological Hx Reported Smoking Status: Current every day smoker Past Alcohol Use History: None Reported Past Drug Use History: None Reported - Past Family History Father Family Medical History: Deep Vein Thrombosis (DVT) General Exam - General Exam Comments Initial Comments: General: Appears in no acute distress. HEAD: Normal with no signs of head trauma. EYES: PERRLA, EOMI, conjunctiva normal, no discharge. ENT: Hearing grossly intact, normal oropharynx. RESPIRATORY: Clear breath sounds bilaterally. No wheezes, rales, or rhonchi. C/V: Tachycardic with regular rhythm. S1 and S2 auscultated. No peripheral edema. Peripheral pulses 2+ and intact throughout. ABD: Abd is soft, nontender, nondistended EXT: Normal range of motion, no obvious deformity SKIN: No rashes or lesions observed on exposed skin. NEURO: Alert and oriented x 4. Cranial nerves II-XII intact. No focal sensory or strength deficits. Limitations: no limitations Course Vital Signs 07/05/23 07/05/23 07/05/23 21:36 22:07 22:30 Temperature 98.2 F Pulse Rate 120 H 107 H 101 H Respiratory 20 28 H 25 H Rate Blood Pressure 82/47 110/49 95/80 O2 Sat by Pulse 96 Oximetry Medical Decision Making - Medical Decision Making Was pt. sent in by a medical professional or institution (MYLES Campa, DEGREE CLERK, urgent care, hospital, or residential...) When possible be specific @ -No Did you speak to anyone other than the patient for history (EMS, parent, family, police, friend...)? What history was obtained from this source @ -No Did you review nursing and triage notes (agree or disagree)? Why? @ -I reviewed and agree with nursing and triage notes Were old charts reviewed (outside hosp., previous admission, EMS record, old EKG, old radiological studies, urgent care reports/EKG's, residential records)? Report findings @ -No old charts were reviewed Differential Diagnosis (chest pain, altered mental status, abdominal pain women, abdominal pain men, vaginal bleeding, weakness, fever, dyspnea, syncope, headache, dizziness, GI bleed, back pain, seizure, CVA, palpatations, mental health, musculoskeletal)? @ -Differential Syncope: Valvular disease, hypertrophic cardiomyopathy, pulmonary embolism, tamponade, tachycardia, bradycardia, UT, hypovolemia, hemorrhage, dissection, anemia, intracranial hemorrhage, seizure, hypoglycemia, carbon monoxide poisoning, this is not meant to be an all-inclusive list. EKG interpreted by me (3pts min.). @ -As above X-rays interpreted by me (1pt min.). @ -None done CT interpreted by me (1pt min.). @ -CT brain, CT angiogram of the chest abdomen pelvis revealed no obvious acute findings. No evidence of aortic dissection. U/S interpreted by me (1pt. min.). @ -None done What testing was considered but not performed or refused? (CT, X-rays, U/S, labs)? Why? @ -None What meds were considered but not given or refused? Why? @ -None Did you discuss the management of the patient with other professionals (professionals i.e. , PA, DEGREE CLERK, lab, RT, psych nurse, hospital social worker, production superintendent hydro, teacher, special forces officer, welfare case worker)? Give summary @ -Discussed with Dr. huddleston of [facility] who accepted the admission. Was smoking cessation discussed for >3mins.? @ -No Was critical care preformed (if so, how long)? @ -Yes, 36 minutes Were there social determinants of health that impacted care today? How? (Homelessness, low income, unemployed, alcoholism, drug addiction, tra nsportation, low edu. Level, literacy, decrease access to med. care, long term, rehab)? @ -No Was there de-escalation of care discussed even if they declined (Discuss DNR or withdrawal of care, Hospice)? DNR status @ -No What co-morbidities impacted this encounter? (DM, HTN, Smoking, COPD, CAD, Cancer, CVA, ARF, Chemo, Hep., AIDS, mental health diagnosis, sleep apnea, morbid obesity)? @ -None Was patient admitted / discharged? Hospital course, mention meds given and route, prescriptions, significant lab abnormalities, going to OR and other pertinent info. @ -Based on the patient's presentation and physical exam, patient presents with a syncopal episode as well as some mid between the shoulder blade back pain. Patient is also hypotensive. I'm concerned for possible aortic injury. We will obtain CT brain, CT angiogram of the aorta. 6. Labs also be obtained. He will be given 2 L fluid bolus be placed on maintenance fluids. Patient in agreement this plan. Imaging negative for any obvious acute process. EKG within acceptable limits. Patient's labs are remarkable for mild leukocytosis of 13 which is likely reactive. Patient has an AK I with a BUN of 23 and creatinine of 2.6. Lactic acid is elevated to 3.6. Vital signs negative. Urine still pending. Troponin undetectable. On reevaluation, patient's blood pressure is improved. He is feeling improved. I do believe his symptoms likely secondary to suspect orthostatic hypotension from dehydration with his FIDELIA. We did discuss this. He was in agreement with the plan for admission and IV fluid hydration. I spoke with the admitting physician, Dr. huddleston who accepted the admission. I did discuss with him his prostate disorder and he does not believe he is retaining urine at this time. H e has no suprapubic discomfort or abdominal discomfort whatsoever. Undiagnosed new problem with uncertain prognosis? @ -No Drug Therapy requiring intensive monitoring for toxicity (Heparin, Nitro, Insulin, Cardizem)? @ -No Were any procedures done? @ -No Diagnosis/symptom? @ -Acute kidney injury, dehydration, hypotension, syncope, diarrhea Acute, or Chronic, or Acute on Chronic? @ -Acute Uncomplicated (without systemic symptoms) or Complicated (systemic symptoms)? @ -Complicated Side effects of treatment? @ -No Exacerbation, Progression, or Severe Exacerbation? @ -No Poses a threat to life or bodily function? How? (Chest pain, USA, UT, pneumonia, PE, COPD, DKA, ARF, appy, cholecystitis, CVA, Diverticulitis, Homicidal, Suicidal, threat to staff... and all critical care pts) @ -Yes - Lab Data Result diagrams: 07/05/23 22:13 07/05/23 22:13 Lab Results 07/05/23 07/05/23 07/05/23 Range/Units 22:13 22:13 22:13 WBC 13.4 H (3.8-10.6) k/uL RBC 4.96 (4.30-5.90) m/uL Hgb 14.9 (13.0-17.5) gm/dL Hct 43.1 (39.0-53.0) % MCV 87.0 (80.0-100.0) fL MCH 30.0 (25.0-35.0) pg MCHC 34.5 (31.0-37.0) g/dL RDW 13.0 (11.5-15.5) % Plt Count 296 (150-450) k/uL MPV 7.6 Neutrophils % 81 % Lymphocytes % 12 % Monocytes % 6 % Eosinophils % 1 % Basophils % 0 % Neutrophils # 10.9 H (1.3-7.7) k/uL Lymphocytes # 1.6 (1.0-4.8) k/uL Monocytes # 0.7 (0-1.0) k/uL Eosinophils # 0.1 (0-0.7) k/uL Basophils # 0.0 (0-0.2) k/uL PT 10.4 (9.0-12.0) sec INR 1.0 (<1.2) APTT 24.0 (22.0-30.0) sec Sodium 133 L (137-145) mmol/L Potassium 4.0 (3.5-5.1) mmol/L Chloride 95 L (98-107) mmol/L Carbon Dioxide 23 (22-30) mmol/L Anion Gap 15 mmol/L BUN 23 H (9-20) mg/dL Creatinine 2.60 H (0.66-1.25) mg/dL Est GFR (CKD-EPI)AfAm 30 (>60 ml/min/1.73 sqM) Est GFR (CKD-EPI)NonAf 26 (>60 ml/min/1.73 sqM) Glucose 118 H (74-99) mg/dL Plasma Lactic Acid Seng (0.7-2.0) mmol/L Calcium 9.2 (8.4-10.2) mg/dL Magnesium 1.8 (1.6-2.3) mg/dL Total Bilirubin 1.0 (0.2-1.3) mg/dL AST 34 (17-59) U/L ALT 32 (4-49) U/L Alkaline Phosphatase 87 (38-126) U/L Troponin I (0.000-0.034) ng/mL Total Protein 7.1 (6.3-8.2) g/dL Albumin 4.3 (3.5-5.0) g/dL Influenza Type A (PCR) (Not Detectd) Influenza Type B (PCR) (Not Detectd) RSV (PCR) (Not Detectd) SARS-CoV-2 (PCR) (Not Detectd) 07/05/23 07/05/23 07/05/23 Range/Units 22:13 22:13 22:25 WBC (3.8-10.6) k/uL RBC (4.30-5.90) m/uL Hgb (13.0-17.5) gm/dL Hct (39.0-53.0) % MCV (80.0-100.0) fL MCH (25.0-35.0) pg MCHC (31.0-37.0) g/dL RDW (11.5-15.5) % Plt Count (150-450) k/uL MPV Neutrophils % % Lymphocytes % % Monocytes % % Eosinophils % % Basophils % % Neutrophils # (1.3-7.7) k/uL Lymphocytes # (1.0-4.8) k/uL Monocytes # (0-1.0) k/uL Eosinophils # (0-0.7) k/uL Basophils # (0-0.2) k/uL PT (9.0-12.0) sec INR (<1.2) APTT (22.0-30.0) sec Sodium (137-145) mmol/L Potassium (3.5-5.1) mmol/L Chloride (98-107) mmol/L Carbon Dioxide (22-30) mmol/L Anion Gap mmol/L BUN (9-20) mg/dL Creatinine (0.66-1.25) mg/dL Est GFR (CKD-EPI)AfAm (>60 ml/min/1.73 sqM) Est GFR (CKD-EPI)NonAf (>60 ml/min/1.73 sqM) Glucose (74-99) mg/dL Plasma Lactic Acid Seng 3.6 H* (0.7-2.0) mmol/L Calcium (8.4-10.2) mg/dL Magnesium (1.6-2.3) mg/dL Total Bilirubin (0.2-1.3) mg/dL AST (17-59) U/L ALT (4-49) U/L Alkaline Phosphatase (38-126) U/L Troponin I <0.012 (0.000-0.034) ng/mL Total Protein (6.3-8.2) g/dL Albumin (3.5-5.0) g/dL Influenza Type A (PCR) Not Detected (Not Detectd) Influenza Type B (PCR) Not Detected (Not Detectd) RSV (PCR) Not Detected (Not Detectd) SARS-CoV-2 (PCR) Not Detected (Not Detectd) - EKG Data -: EKG Interpreted by Me EKG Comments: 12-lead Electrocardiogram Interpretation Note EKG was reviewed and interpreted by myself. 12-lead ECG performed at 2159 is interpreted by me as revealing sinus tachycardia at a rate of 106 beats per minute. [place] is normal. [place] interval is 132 ms, QRS duration is 89 ms, QTc is 403 ms.. There were no ST or T wave abnormalities to suggest myocardial ischemia or injury. R wave progression across the precordium was satisfactory. By my interpretation this EKG is non-diagnostic for acute ischemia. Critical Care Time Critical Care Time: Yes Total Critical Care Time: 36 Disposition Clinical Impression: FIDELIA (acute kidney injury), Dehydration, Syncope, Diarrhea Disposition: ADMITTED IP TO THIS HOSP Condition: Stable Referrals: Gary Baum DO [Primary Care Provider] - 1-2 days Time of Disposition: 00:04
[2023-07-06 02:01] LABS: Appearance,Urine Clear (Clear); Bilirubin,Urine Negative (Negative); Blood,Urine Negative (Negative); Glucose,Urine (UA) Negative (Negative); Ketones,Urine Negative (Negative); Leukocyte Esterase,Urine Negative (Negative); Nitrite,Urine Negative (Negative); Protein,Urine Trace (Negative); Specific Gravity,Urine 1.017 (1.001-1.035); Urobilinogen,Urine <2.0 mg/dL (<2.0)
[2023-07-06 02:02] LABS: Color,Urine Yellow
[2023-07-06 09:52] VITALS: RESP 16
[2023-07-06 16:54] LABS: African American GFR (CKD) 64 (>60 ml/min/1.73 sqM); Anion Gap 9 mmol/L; Blood Urea Nitrogen 25 mg/dL (9-20); Calcium 8.7 mg/dL (8.4-10.2); Carbon Dioxide 22 mmol/L (22-30); Chloride 104 mmol/L (98-107); Glucose 137 mg/dL (74-99); Non-African American GFR(CKD) 56 (>60 ml/min/1.73 sqM); Potassium 4.1 mmol/L (3.5-5.1); Sodium 135 mmol/L (137-145)
[2023-07-06] MEDS ORDERED: hydroCHLOROthiazide 25 MG TAB PO SCH (17:30)
[2023-07-06] MEDS ORDERED: ATORVASTATIN 20 MG TAB PO SCH (17:30)
[2023-07-06] MEDS ORDERED: FINASTERIDE 5 MG TAB PO SCH (17:30)
[2023-07-06] MEDS ORDERED: LOSARTAN 50 MG TAB PO SCH (17:30)
[2023-07-06] MEDS ORDERED: amLODIPine 10 MG TAB PO SCH (17:30)
[2023-07-06] MEDS ORDERED: TAMSULOSIN 0.4 MG CAP.ER.24H PO SCH (17:30)
[2023-07-06] MEDS ORDERED: buPROPion XL 150 MG TAB.ER.24H PO SCH (17:30)
[2023-07-07 09:06] LABS: Basophils # (A) 0.04 X 10*3/uL (0.00-0.10); Basophils % (A) 0.5 %; Eosinophils # (A) 0.33 X 10*3/uL (0.04-0.35); Eosinophils % (A) 3.9 %; HGB 14.6 d/dL (13.0-17.0); Lymphocytes # (A) 2.99 X 10*3/uL (0.90-5.00); Lymphocytes % (A) 35.1 %; MCH 29.6 pg (27.0-32.0); MCV 87.2 FL (80.0-97.0); Mean Platelet Volume 10.3 FL (9.5-12.2); Monocytes # (A) 0.62 X 10*3/uL (0.20-1.00); Monocytes % (A) 7.3 %; NRBC Per 100 WBC 0 X 10*3/uL (0.00-0.01); Neutrophils # (A) 4.48 X 10*3/uL (1.80-7.70); Neutrophils % (A) 52.6 %; Platelet Count 300 X 10*3/uL (140-440); RBC 4.93 X 10*6/uL (4.40-5.60); RDW 12.8 % (11.5-14.5); WBC 8.51 X 10*3/uL (4.50-10.00)
[2023-07-07 09:10] LABS: BUN/Creat Ratio 17.91 Ratio (12.00-20.00); Blood Urea Nitrogen 19.7 mg/dL (9.0-27.0); Calcium 9.2 mg/dL (8.7-10.3); Carbon Dioxide 26.4 mmol/L (21.6-31.8); Chloride 103 mmol/L (96-109); Glucose 121 mg/dL (70-110); Potassium 4.1 mmol/L (3.5-5.5); Sodium 139 mmol/L (135-145)
[2023-07-07 15:46] VITALS: BP 111/70; PULSE 85; TEMP 98.3
--- NOTE | 2023-07-08 09:53 | P.HPIM ---
History of Present Illness H&P Date: 07/06/23 Chief Complaint: Syncope 58-year-old male with past medical history remarkable for hypertension and prostate disorder presents emergency Department complaining of a syncopal e pisode at work as well as diarrhea for the last 1-2 weeks. States he felt lightheaded and then passed out. Has been feeling more lightheaded over the last few days as well. Is not on blood thinners. Denies any hematochezia, melena, hematemesis. Endorses nausea but no emesis. Denies constipation but does endorse light brown diarrhea. Denies any urinary complaints. Has no other acute complaints at this time. Was complaining of mid back pain between the shoulder blades with possibly some chest pain radiation. This was more sudden onset earlier today prior to the syncopal episode. Was placed in room 3 for further evaluation. No cardiac history per patient. Blood work completed in ED reveals WBC of 13.4, hemoglobin of 14.9 and platelet count of 296, sodium 133, potassium 4.0, BUN/creatinine of 23/2.60 and blood glucose of 118 Upon arrival patient was hypotensive with a blood pressure of 82/47; patient received IV normal saline bolus at 2 L which did improve blood pressure; CT of the brain and CTA was negative for any acute process - Patient's symptom complex deemed related to diarrhea, dehydration and hypotension Review of Systems REVIEW OF SYSTEMS: CONSTITUTIONAL: No fever, no malaise, no fatigue. HEENT: No recent visual problems or hearing problems. Denied any sore throat. CARDIOVASCULAR: No chest pain, orthopnea, PND, no palpitations, no syncope. PULMONARY: No shortness of breath, no cough, no hemoptysis. GASTROINTESTINAL: No diarrhea, no nausea, no vomiting, no abdominal pain. NEUROLOGICAL: No headaches, no weakness, no numbness. HEMATOLOGICAL: Denies any bleeding or petechiae. GENITOURINARY: Denies any burning micturition, frequency, or urgency. MUSCULOSKELETAL/RHEUMATOLOGICAL: Denies any joint pain, swelling, or any muscle pain. ENDOCRINE: Denies any polyuria or polydipsia. The rest of the 14-point review of systems is negative. Past Medical History Past Medical History: Hypertension, Prostate Disorder Additional Past Medical History / Comment(s): migraines, hx heart murmer, hx gout, hx bacterial meningitis 1995 History of Any Multi-Drug Resistant Organisms: MRSA Date of last positivie culture/infection: 01/31/22 MDRO Source:: MRSA GROIN Past Surgical History: No Surgical Hx Reported Past Anesthesia/Blood Transfusion Reactions: No Reported Reaction Past Psychological History: No Psychological Hx Reported Smoking Status: Current every day smoker Past Alcohol Use History: None Reported Past Drug Use History: None Reported - Past Family History Father Family Medical History: Deep Vein Thrombosis (DVT) Medications and Allergies Home Medications Medication Instructions Recorded Confirmed Type Finasteride [Proscar] 5 mg PO AC-SUPPER 11/06/17 07/05/23 History Irbesartan 300 mg PO AC-SUPPER 11/06/17 07/05/23 History Tamsulosin [Flomax] 0.4 mg PO AC-SUPPER 11/06/17 07/05/23 History buPROPion HCL [Wellbutrin XL] 150 mg PO AC-SUPPER 11/06/17 07/05/23 History Atorvastatin [Lipitor] 20 mg PO AC-SUPPER 07/05/23 07/05/23 History amLODIPine [Norvasc] 10 mg PO AC-SUPPER 07/05/23 07/05/23 History hydroCHLOROthiazide [Hydrodiuril] 12.5 mg PO AC-SUPPER 07/05/23 07/05/23 History Allergies Allergy/AdvReac Type Severity Reaction Status Date / Time erythromycin base Allergy Rash/Hives Verified 07/05/23 23:26 Physical Exam Vitals: Vital Signs Temp Pulse Pulse Resp BP BP Pulse Ox 07/06/23 07:45 98.2 F 100 16 100/66 95 07/06/23 06:00 98.3 F 97 18 137/74 98 07/06/23 02:00 98.2 F 88 16 117/60 98 07/06/23 00:30 106 H 21 112/55 98 07/06/23 00:00 106 H 23 118/59 97 07/05/23 23:30 106 H 22 113/50 96 07/05/23 22:30 101 H 25 H 95/80 07/05/23 22:07 107 H 28 H 110/49 07/05/23 21:36 98.2 F 120 H 20 82/47 96 Intake and Output 07/05/23 07/06/23 07/06/23 22:59 06:59 14:59 Intake Total 240 Balance 240 Intake: Oral 240 Other: Weight 99.79 kg - Constitutional General appearance: Present: average body habitus, cooperative, no acute dis tress - EENT Eyes: Present: anicteric sclerae, EOMI, PERRLA, normal appearance ENT: Present: hearing grossly normal, normal oropharynx Ears: bilateral: normal - Neck Neck: Present: normal ROM. Absent: lymphadenopathy, rigidity, thyromegaly Carotids: negative: bruit present Thyroid: bilateral: normal size, negative: enlarged, nodule - Respiratory Respiratory: bilateral: CTA, negative: rales, rhonchi, wheezing - Cardiovascular Rhythm: regular Heart sounds: normal: S1, S2 Abnormal Heart Sounds: Absent: systolic murmur, diastolic murmur - Gastrointestinal General gastrointestinal: Present: normal bowel sounds, soft. Absent: distended, organomegaly, tenderness - Genitourinary Genitourinary Comment(s): deferred - Integumentary Integumentary: Present: normal turgor. Absent: jaundiced, rash, ulcer - Neurologic Neurologic: Present: CNII-XII intact. Absent: focal deficits - Musculoskeletal Musculoskeletal: Present: gait normal, strength equal bilaterally - Psychiatric Psychiatric: Present: A&O x's 3, appropriate affect, intact judgment & insight Results CBC & Chem 7: 07/07/23 04:12 07/07/23 04:12 Labs: Abnormal Lab Results - Last 24 Hours (Table) 07/05/23 07/05/23 07/05/23 Range/Units 22:13 22:13 22:13 WBC 13.4 H (3.8-10.6) k/uL Neutrophils # 10.9 H (1.3-7.7) k/uL Sodium 133 L (137-145) mmol/L Chloride 95 L (98-107) mmol/L BUN 23 H (9-20) mg/dL Creatinine 2.60 H (0.66-1.25) mg/dL Glucose 118 H (74-99) mg/dL Plasma Lactic Acid Seng 3.6 H* (0.7-2.0) mmol/L Urine Protein (Negative) 07/06/23 07/06/23 Range/Units 01:00 01:48 WBC (3.8-10.6) k/uL Neutrophils # (1.3-7.7) k/uL Sodium (137-145) mmol/L Chloride (98-107) mmol/L BUN (9-20) mg/dL Creatinine (0.66-1.25) mg/dL Glucose (74-99) mg/dL Plasma Lactic Acid Seng 3.0 H* (0.7-2.0) mmol/L Urine Protein Trace H (Negative) Assessment and Plan Assessment: 1. Acute syncope - Likely related to hypovolemia and dehydration; orthostatic vital signs are positive - Patient is placed on normal saline at rate of 130 mL an hour; we will monitor strict COLTEN's, daily weights, renal function and electrolytes - CT head and CTA head and neck is unremarkable; patient will remain on telemetry with neuro checks 2. Acute renal injury; likely related to dehydration; patient remains on IV fluids as indicated above; we will monitor strict COLTEN's, daily weights, renal function and electrolytes; avoid nephrotoxins and hypotension 3. Lactic acidosis; lactic acid at 3.6 at time of admission; likely related to a care and dehydration; continue with IV fluids as indicated above; monitor lactic acid 4. Acute onset diarrhea; likely viral; maintain hydration 5. Hypertension; patient takes irbesartan, amlodipine and hydrochlorothiazide at home which has been placed on hold till blood pressure and renal function improves 6. Hyperlipidemia; Lipitor 20 mg daily 7. BPH/urinary incontinence; Proscar 5 mg daily and Flomax 0.4 mg daily 7. Depression; Wellbutrin 150 mg daily DVT prophylaxis; SCDs CODE STATUS full code
--- NOTE | 2023-07-08 09:55 | P.DS ---
Providers Date of admission: 07/06/23 00:13 Expected date of discharge: 07/07/23 Attending physician: Hyun More MD Primary care physician: [facility] Course: 58-year-old male with past medical history remarkable for hypertension and prostate disorder presents emergency Department complaining of a syncopal episode at work as well as diarrhea for the last 1-2 weeks. States he felt lightheaded and then passed out. Has been feeling more lightheaded over the last few days as well. Is not on blood thinners. Denies any hematochezia, melena, hematemesis. Endorses nausea but no emesis. Denies constipation but does endorse light brown diarrhea. Denies any urinary complaints. Has no other acute complaints at this time. Was complaining of mid back pain between the shoulder blades with possibly some chest pain radiation. This was more sudden onset earlier today prior to the syncopal episode. Was placed in room 3 for further evaluation. No cardiac history per patient. Blood work completed in ED reveals WBC of 13.4, hemoglobin of 14.9 and platelet count of 296, sodium 133, potassium 4.0, BUN/creatinine of 23/2.60 and blood glucose of 118 Upon arrival patient was hypotensive with a blood pressure of 82/47; patient received IV normal saline bolus at 2 L which did improve blood pressure; CT of the brain and CTA was negative for any acute process - Patient's symptom complex deemed related to diarrhea, dehydration and hypotension 1. Acute syncope - Likely related to hypovolemia and dehydration; orthostatic vital signs are positive - Patient is placed on normal saline at rate of 130 mL an hour; we will monitor strict COLTEN's, daily weights, renal function and electrolytes - CT head and CTA head and neck is unremarkable; patient will remain on telemetry with neuro checks 2. Acute renal injury; likely related to dehydration; patient remains on IV fluids as indicated above; we will monitor strict COLTEN's, daily weights, renal function and electrolytes; avoid nephrotoxins and hypotension 3. Lactic acidosis; lactic acid at 3.6 at time of admission; likely related to a care and dehydration; continue with IV fluids as indicated above; monitor lactic acid 4. Acute onset diarrhea; likely viral; maintain hydration 5. Hypertension; patient takes irbesartan, amlodipine and hydrochlorothiazide at home which has been placed on hold till blood pressure and renal function improves 6. Hyperlipidemia; Lipitor 20 mg daily 7. BPH/urinary incontinence; Proscar 5 mg daily and Flomax 0.4 mg daily 7. Depression; Wellbutrin 150 mg daily Patient a marked improvement with above treatment; renal function improved; diarrhea initially resolved but the of discharge patient reported 3 episodes of diarrhea stool studies and continue observation was recommended; Patient declined and that he will be following up his PCP on Sunday and address diarrhea with PCP; Patient to be discharged home in a stable condition Patient Condition at Discharge: Stable Plan - Discharge Summary Discharge Rx Participant: No New Discharge Prescriptions: Continue buPROPion HCL [Wellbutrin XL] 150 mg PO AC-SUPPER Irbesartan 300 mg PO AC-SUPPER Finasteride [Proscar] 5 mg PO AC-SUPPER Tamsulosin [Flomax] 0.4 mg PO AC-SUPPER Atorvastatin [Lipitor] 20 mg PO AC-SUPPER hydroCHLOROthiazide [Hydrodiuril] 12.5 mg PO AC-SUPPER amLODIPine [Norvasc] 10 mg PO AC-SUPPER Discharge Medication List Finasteride [Proscar] 5 mg PO AC-SUPPER 11/06/17 [History] Irbesartan 300 mg PO AC-SUPPER 11/06/17 [History] Tamsulosin [Flomax] 0.4 mg PO AC-SUPPER 11/06/17 [History] buPROPion HCL [Wellbutrin XL] 150 mg PO AC-SUPPER 11/06/17 [History] Atorvastatin [Lipitor] 20 mg PO AC-SUPPER 07/05/23 [History] amLODIPine [Norvasc] 10 mg PO AC-SUPPER 07/05/23 [History] hydroCHLOROthiazide [Hydrodiuril] 12.5 mg PO AC-SUPPER 07/05/23 [History] Follow up Appointment(s)/Referral(s): Gary Baum DO [Primary Care Provider] - 1-2 days Patient Instructions/Handouts: Dehydration (DC), Acute Kidney Injury (DC) Activity/Diet/Wound Care/Special Instructions: if diarrhea persists have stool sample done at primary dr office
== END 2023-07-07 16:55 ==
LOC: EC 21:23 → 6NMEDSUR 07-06 00:13
PROVIDERS: ADMIT Internal Medicine; ATTEND Internal Medicine
DX: I95.1 Orthostatic hypotension (principal); N17.9 Acute kidney failure, unspecified; E86.0 Dehydration; E87.20 Acidosis, unspecified; R19.7 Diarrhea, unspecified; D72.829 Elevated white blood cell count, unspecified; N40.1 Benign prostatic hyperplasia with lower urinary tract symptoms; N39.498 Other specified urinary incontinence; I10 Essential (primary) hypertension; M54.6 Pain in thoracic spine; G43.909 Migraine, unspecified, not intractable, without status migrainosus; M10.9 Gout, unspecified; Z20.822 Contact with and (suspected) exposure to COVID-19; R00.0 Tachycardia, unspecified; F32.A Depression, unspecified; F17.200 Nicotine dependence, unspecified, uncomplicated; Z86.14 Personal history of Methicillin resistant Staphylococcus aureus infection; Z79.899 Other long term (current) drug therapy; Z88.1 Allergy status to other antibiotic agents; Z86.61 Personal history of infections of the central nervous system; Z82.49 Family history of ischemic heart disease and other diseases of the circulatory system
CPT/HCPCS: 96360; 96361 ×2; 99285; 36415; 93005; 86900; 86901; 80053; 80048 ×2; 83605 ×2; 83735; 84484; 85025 ×2; 85610; 85730; 86850; 81003; 87636; 70450; 71275; 74174; G0378 ×2; S0138; Q9967

== ENCOUNTER 2025-05-25 12:34 | Emergency (ER) | payer OTHER, BC ==
[2025-05-25 12:37] VITALS: RESP 18; TEMP 97.8
--- NOTE | 2025-05-25 12:47 | ED ---
Extremity Problem HPI - General Chief complaint: Extremity Problem,Nontraumatic Stated complaint: L leg issue Time Seen by Provider: 05/25/25 12:39 Source: patient, RN notes reviewed Mode of arrival: ambulatory Limitations: no limitations - History of Present Illness Initial comments: This is a 60-year-old male who presents to the emergency department for left leg pain and swelling. States that he noticed it a few days ago. He has noticed redness, warmth, and tenderness behind the left knee radiating down into the calf. States that his calf and ankle look more swollen than usual as well. This is only painful to the touch. It is not bothersome when sitting still. Denies any itching to this area does not believe he was bitten by anything. De nies any fevers or chills. He does not have a history of blood clots and is not taking any blood thinners. Denies any chest pain or shortness of breath. MD Complaint: extremity pain, extremity swelling - Related Data Home Medications Medication Instructions Recorded Confirmed Finasteride [Proscar] 5 mg PO AC-SUPPER 11/06/17 07/05/23 Irbesartan 300 mg PO AC-SUPPER 11/06/17 07/05/23 Tamsulosin [Flomax] 0.4 mg PO AC-SUPPER 11/06/17 07/05/23 buPROPion HCL [Wellbutrin XL] 150 mg PO AC-SUPPER 11/06/17 07/05/23 Atorvastatin [Lipitor] 20 mg PO AC-SUPPER 07/05/23 07/05/23 amLODIPine [Norvasc] 10 mg PO AC-SUPPER 07/05/23 07/05/23 hydroCHLOROthiazide [Hydrodiuril] 12.5 mg PO AC-SUPPER 07/05/23 07/05/23 Previous Rx's Medication Instructions Recorded Cephalexin [Keflex] 500 mg PO Q6HR 7 Days #28 cap 05/25/25 Naproxen Sodium 550 mg PO BID #30 tablet 05/25/25 Allergies Allergy/AdvReac Type Severity Reaction Status Date / Time erythromycin base Allergy Rash/Hives Verified 05/25/25 12:37 Review of Systems ROS Statement: Those systems with pertinent positive or pertinent negative responses have been documented in the HPI. ROS Other: All systems not noted in ROS Statement are negative. Past Medical History Past Medical History: Hypertension, Prostate Disorder Additional Past Medical History / Comment(s): migraines, hx heart murmer, hx gout, hx bacterial meningitis 1995 History of Any Multi-Drug Resistant Organisms: MRSA Date of last positivie culture/infection: 01/31/22 MDRO Source:: MRSA GROIN Past Surgical History: No Surgical Hx Reported Past Anesthesia/Blood Transfusion Reactions: No Reported Reaction Past Psychological History: No Psychological Hx Reported Smoking Status: Current every day smoker Past Alcohol Use History: None Reported Past Drug Use History: None Reported - Past Family History Father Family Medical History: Deep Vein Thrombosis (DVT) General Exam Limitations: no limitations General appearance: alert, in no apparent distress Head exam: Present: atraumatic, normocephalic, normal inspection Respiratory exam: Present: normal lung sounds bilaterally. Absent: respiratory distress, wheezes, rales, rhonchi, stridor Cardiovascular Exam: Present: regular rate, normal rhythm Extremities exam: Present: other (Tenderness, warmth, induration, and erythema in the left popliteal fossa extending distally. Calf tenderness.) Neurological exam: Present: alert, oriented X3, CN II-XII intact Psychiatric exam: Present: normal affect, normal mood Course Vital Signs 05/25/25 12:36 Temperature 97.8 F Pulse Rate 110 H Respiratory 18 Rate Blood Pressure 192/98 O2 Sat by Pulse 97 Oximetry Medical Decision Making - Medical Decision Making This is a 60-year-old male who presents to the emergency department for left leg pain and swelling. Was pt. sent in by a medical professional or institution? @ -No Did you speak to anyone other than the patient for history? @ -No Did you review nursing and triage notes? @ -Yes, and I agree, it is accurate with regards to the patient's symptoms. Were old charts reviewed? @ -No Differential Diagnosis? @ -Differential Musculoskeletal Muscular strain, contusion, ligament sprain, fracture, arthritis, septic arthritis, bursitis, cellulitis, muscle spasm, nerve compression, DVT, arterial occlusion, herpes zoster, electrolyte abnormality, tumor.... This is not meant to be in all inclusive list EKG interpreted by me (3pts min.)? @ -Not obtained X-rays interpreted by me (1pt min.)? @ -Not obtained CT interpreted by me (1pt min.)? @ -Not obtained U/S interpreted by me (1pt. min.)? @ -Duplex ultrasound of the left lower extremity obtained. My interpretation identifies no evidence of a DVT. What testing was considered but not performed? (CT, X-rays, U/S, labs)? Why? @ -None What meds were considered but not given? Why? @ -None Did you discuss the management of the patient with other professionals? @ -No Did you reconcile home meds? @ -No Was smoking cessation discussed for >3mins.? @ -I discussed smoking cessation for greater than 3 minutes. The risk of smok ing were discussed with the patient including but not limited to risks of cancer, stroke, coronary artery disease and COPD. Also discussed with patient were multiple methods of quitting smoking. Lastly we discussed the financial cost of smoking. Was critical care preformed (if so, how long)? @ -No Were there social determinants of health that impacted care today? How? (Homelessness, low income, unemployed, alcoholism, drug addiction, transportation, low edu. Level, literacy, decrease access to med. care, alf, rehab)? @ -No Was there de-escalation of care discussed even if they declined? (Discuss DNR or withdrawal of care, Hospice)? @ -No What co-morbidities impacted this encounter? (DM, HTN, Smoking, COPD, CAD, Cancer, CVA, Hep., AIDS, mental health diagnosis, sleep apnea, morbid obesity)? @ -Smoking, HTN Was patient admitted / discharged? @ -Discharged. Lab work demonstrates a mildly elevated CRP of 2.3 and an elevated lactic acid of 3.0. There is no leukocytosis. 1 L of IV fluids administered. Duplex ultrasound of the left lower extremity reveals no evidence of a DVT. He does have a mild superficial greater saphenous vein thrombosis at the area of concern. Findings reviewed with the patient. He did have some signs of a mild surrounding cellulitis. Advised that we will treat him with Keflex as a result. He was also given a prescription for naproxen to help with the pain and inflammation. Also advised elevation, compression, and warm compresses. Patient discharged home in stable condition and advised to have close follow-up with his PCP. Case discussed with ED attending Dr. Browne. Return precautions reviewed in depth, the patient is instructed to return to the emergency department with any new, worsening, or concerning symptoms. Patient verbalized understanding. Undiagnosed new problem with uncertain prognosis? @ -None Drug Therapy requiring intensive monitoring for toxicity (Heparin, Nitro, Insulin, Cardizem)? @ -None Were any procedures done? @ -None Diagnosis/symptom? @ -Superficial thrombophlebitis of left leg, cellulitis Acute, or Chronic, or Acute on Chronic? @ -Acute Uncomplicated (without systemic symptoms) or Complicated (systemic symptoms)? @ -Uncomplicated Side effects of treatment? @ -None Exacerbation, Progression, or Severe Exacerbation] @ -Not applicable Poses a threat to life or bodily function? @ -No - Lab Data Result diagrams: 05/25/25 12:55 05/25/25 12:55 Lab Results 05/25/25 05/25/25 05/25/25 Range/Units 12:55 12:55 12:55 WBC 6.85 (4.50-10.00) 10*3/uL RBC 4.84 (4.40-5.60) 10*6/uL Hgb 14.4 (13.0-17.0) g/dL Hct 41.7 (39.6-50.0) % MCV 86.2 (80.0-97.0) fL MCH 29.8 (27.0-32.0) pg MCHC 34.5 (32.0-37.0) g/dL Plt Count 248 (140-440) 10*3/uL MPV 9.6 (9.5-12.2) fL Immature Gran % (Auto) 0.3 % Neutrophils % 62.3 % Lymphocytes % 28.6 % Monocytes % 5.4 % Eosinophils % 3.1 % Basophils % 0.3 % Immature Gran # 0.02 (0.00-0.04) 10*3/uL Neutrophils # 4.27 (1.80-7.70) 10*3/uL Lymphocytes # 1.96 (0.90-5.00) 10*3/uL Monocytes # 0.37 (0.20-1.00) 10*3/uL Eosinophils # 0.21 (0.04-0.35) 10*3/uL Basophils # 0.02 (0.00-0.10) 10*3/uL Sodium 139 (137-145) mmol/L Potassium 3.8 (3.5-5.1) mmol/L Chloride 102 (98-107) mmol/L Carbon Dioxide 19 L (22-30) mmol/L Anion Gap 18 mmol/L BUN 12 (9-20) mg/dL Creatinine 0.77 (0.66-1.25) mg/dL Est GFR (CKD-EPI)AfAm >90 (>60 ml/min/1.73 sqM) Est GFR (CKD-EPI)NonAf >90 (>60 ml/min/1.73 sqM) Glucose 144 H (74-99) mg/dL Plasma Lactic Acid Seng 3.0 H* (0.7-2.0) mmol/L Calcium 9.2 (8.4-10.2) mg/dL Total Bilirubin 1.2 (0.2-1.3) mg/dL AST 41 (17-59) U/L ALT 28 (4-49) U/L Alkaline Phosphatase 99 (38-126) U/L C-Reactive Protein 2.3 H (<1.0) mg/dL Total Protein 7.0 (6.3-8.2) g/dL Albumin 4.3 (3.5-5.0) g/dL - Radiology Data Radiology results: report reviewed, image reviewed Disposition Clinical Impression: Superficial thrombophlebitis of left leg, Cellulitis Disposition: HOME SELF-CARE Instructions (If sedation given, give patient instructions): Superficial Thrombophlebitis (ED) Additional Instructions: Return to the emergency department with any new, worsening, or concerning symptoms. Take the antibiotic as prescribed for 7 days. Take the naproxen twice daily for at least a week and then as needed for pain control. Elevate the leg as much as possible, use compression stockings, and apply warm compresses. Follow up with your primary care provider for reevaluation. Prescriptions: Cephalexin [Keflex] 500 mg PO Q6HR 7 Days #28 cap Naproxen Sodium 550 mg PO BID #30 tablet Is patient prescribed a controlled substance at d/c from ED?: No Referrals: Gary Baum DO [Primary Care Provider] - 1-2 days Time of Disposition: 14:05
[2025-05-25 13:11] LABS: Basophils # (A) 0.02 10*3/uL (0.00-0.10); Basophils % (A) 0.3 %; Eosinophils # (A) 0.21 10*3/uL (0.04-0.35); Eosinophils % (A) 3.1 %; HCT 41.7 % (39.6-50.0); HGB 14.4 g/dL (13.0-17.0); Lymphocytes # (A) 1.96 10*3/uL (0.90-5.00); Lymphocytes % (A) 28.6 %; MCH 29.8 pg (27.0-32.0); MCHC 34.5 g/dL (32.0-37.0); MCV 86.2 fL (80.0-97.0); Monocytes # (A) 0.37 10*3/uL (0.20-1.00); Monocytes % (A) 5.4 %; Neutrophils # (A) 4.27 10*3/uL (1.80-7.70); Neutrophils % (A) 62.3 %; Platelet Count 248 10*3/uL (140-440); RBC 4.84 10*6/uL (4.40-5.60); RDW 13.5 % (11.5-14.5); WBC 6.85 10*3/uL (4.50-10.00)
[2025-05-25 13:29] LABS: ALT 28 U/L (4-49); African American GFR (CKD) >90 (>60 ml/min/1.73 sqM); Albumin 4.3 g/dL (3.5-5.0); Anion Gap 18 mmol/L; Blood Urea Nitrogen 12 mg/dL (9-20); Calcium 9.2 mg/dL (8.4-10.2); Carbon Dioxide 19 mmol/L (22-30); Chloride 102 mmol/L (98-107); Glucose 144 mg/dL (74-99); Non-African American GFR(CKD) >90 (>60 ml/min/1.73 sqM); Sodium 139 mmol/L (137-145); Total Protein 7.0 g/dL (6.3-8.2)
[2025-05-25 13:40] LABS: AST 41 U/L (17-59); Potassium 3.8 mmol/L (3.5-5.1)
[2025-05-25 13:41] LABS: Alkaline Phosphatase 99 U/L (38-126)
--- NOTE | 2025-05-25 13:41 | US ---
EXAMINATION TYPE: US venous doppler duplex LE LT DATE OF EXAM: 05/25/2025 1:28 PM COMPARISON: NONE CLINICAL INDICATION: Male, 60 years old with history of Leg pain and swelling; pain and redness in le ft medial leg by knee TECHNIQUE: The lower extremity deep venous system is examined utilizing real time linear array sonog bridgette with graded compression, doppler sonography and color-flow sonography. Grayscale, color doppler , spectral doppler imaging performed of the deep veins of the lower extremities FINDINGS: SIDE PERFORMED: Left VESSELS IMAGED: Common Femoral Vein Deep Femoral Vein Greater Saphenous Vein * Femoral Vein Popliteal Vein Small Saphenous Vein * Proximal Calf Veins (* superficial vessels) Left Leg: No evidence for DVT. Echoes seen in GSV at knee at area of concern.; IMPRESSION: No evidence for deep vein thrombosis. Mild superficial greater saphenous vein thrombus at area of concern [facility], Workstation: [facility], 05/25/2025 1:39 PM
[2025-05-25] MEDS: SODIUM CHLORIDE 0.9% 1,000 ML IV ONE ×2 (13:59→14:14)
[2025-05-25 14:58] VITALS: BP 145/78; PULSE 68
== END 2025-05-25 14:58 | disposition home or self-care (01) ==
LOC: EC 12:34
DX: I80.02 Phlebitis and thrombophlebitis of superficial vessels of left lower extremity (principal); L03.116 Cellulitis of left lower limb; I10 Essential (primary) hypertension; F17.200 Nicotine dependence, unspecified, uncomplicated; Z88.1 Allergy status to other antibiotic agents
CPT/HCPCS: 36415; 80053; 83605; 85025; 86140; 96360; 99284